=== PATIENT | male | born 1980 | race Caucasian/White ===

== ENCOUNTER 2023-01-15 12:08 | Emergency (ER) | payer BC ==
[2023-01-15] MEDS ORDERED: Ibuprofen 200 MG TAB ONE (14:06)
[2023-01-15] MEDS ORDERED: HYDROcodone/Acetaminophen 5/325 mg Tablet ONE (14:06)
== END 2023-01-15 14:21 | disposition home or self-care (01) ==
LOC: CSHERS 12:08
DX: S83.92XA Sprain of unspecified site of left knee, initial encounter (principal); F17.210 Nicotine dependence, cigarettes, uncomplicated; W19.XXXA Unspecified fall, initial encounter

== ENCOUNTER 2023-01-31 14:43 | Outpatient (CLI) | payer BC | END 2023-01-31 14:44 | disposition home or self-care (01) | LOC: CSHMRI 14:43 | PROVIDERS: ATTEND Neurological Surgery | DX: M51.34 Other intervertebral disc degeneration, thoracic region (principal); M54.50 Low back pain, unspecified; Z98.890 Other specified postprocedural states; M51.36 Other intervertebral disc degeneration, lumbar region | CPT/HCPCS: 72146; 72148 ==